=== PATIENT | female | born 1965 | race Native Hawaiian/Other Pacific Islander ===

== ENCOUNTER → 2022-12-30 | Outpatient (CLI) | payer BC ==
--- NOTE | 2022-12-30 18:24 | US ---
EXAMINATION TYPE: US thyroid st tissue head/neck DATE OF EXAM: 12/30/2022 COMPARISON: NONE CLINICAL INDICATION: Female, 57 years old with history of E04.8 OTHER SPECIFIED NONTOXIC GOITER; Pt s tates thinks left side of thyroid appears larger than right side. GLAND SIZE: Right Lobe: 4.8 x 2.0 x 1.5cm cm Overall Parenchyma: homogenous Left Lobe: 4.4 x 1.3 x 1.4 cm Overall Parenchyma: homogeneous Isthmus Thickness: 0.27 cm NODULES RIGHT: # of nodules measured on right: 0 LEFT: # of nodules measured on left: 0 ISTHMUS: # of nodules measured in the isthmus: 0 Multiple lymph nodes seen on left side of neck. Largest = 1.8 x 1.1 x 0.4cm. These demonstrate centra l fatty hilum and measure less than 1 cm short axis. IMPRESSION: 1. Unremarkable appearance of the thyroid gland without discrete nodule. 2. Few benign-appearing minimally prominent left neck lymph nodes.
== END | disposition home or self-care (01) ==
LOC: RADUSWWP 16:50
PROVIDERS: ATTEND Otolaryngology
DX: E04.8 Other specified nontoxic goiter (principal); R59.0 Localized enlarged lymph nodes
CPT/HCPCS: 76536

== ENCOUNTER → 2023-01-15 | Outpatient (CLI) | payer BC ==
--- NOTE | 2023-01-16 08:36 | CT ---
EXAMINATION TYPE: CT iac wo con DATE OF EXAM: 01/15/2023 COMPARISON: Right hearing loss HISTORY: hearing loss of right ear CT DLP: 142.7mGycm Automated exposure control for dose reduction was used. FINDINGS: The external auditory canals are patent bilaterally. Mastoid air cells show no evidence of abnormal opacification bilaterally. The middle ear ossicles are symmetric and unremarkable. There is no evidence of suspicious surrounding soft tissue density to suggest cholesteatoma. The scu bakari is preserved bilaterally. The cochlea is symmetric and unremarkable. There is thinning of the arcuate eminence along the upper margin of the superior symmetric circular canal bilaterally. There are changes of the ethmoidal and maxillary sinus chronic sinusitis. Vestibular aqueduct and internal carotid canal appear unremarkable. Temporomandibular joints are carole ntained bilaterally. IMPRESSION: 1. There is thinning of the arcuate eminence bilaterally along the upper margin of the superior semic ircular canal greater on the right which can be associated with superior semicircular canal dehiscenc e. There is a false positive rate with CT scan. Recommend MRI internal auditory canals for confirmati on. 2. Chronic sinusitis
== END | disposition home or self-care (01) ==
LOC: RADCTMAIN 17:17
PROVIDERS: ATTEND Otolaryngology
DX: H90.A31 Mixed conductive and sensorineural hearing loss, unilateral, right ear with restricted hearing on the contralateral side (principal); J32.0 Chronic maxillary sinusitis; J32.2 Chronic ethmoidal sinusitis
CPT/HCPCS: 70480

== ENCOUNTER → 2023-02-03 | Outpatient (CLI) | payer BC ==
--- NOTE | 2023-02-04 12:17 | MR ---
EXAMINATION TYPE: MR iac wo/w con DATE OF EXAM: 02/03/2023 6:14 PM CLINICAL INDICATION:Female, 57 years old with history of R93.89 ABNORMAL FINDINGS DIAG IMAGING; , Hea ring loss Right ear COMPARISON: CT 01/15/2023 TECHNIQUE: Multi planar, multi sequence imaging was performed through the brain. Specialized thin s equences were obtained through the internal auditory canals. Pre-and post gadolinium sequences were obtained. MR contrast: IV Contrast: 6 cc Gadavist FINDINGS: The cain-white junctions, ventricular system, and cisterns appear unremarkable. Minimal vague foci of high T2 signal intensity are seen within the periventricular white matter. Midline structures show no abnormality. Diffusion-weighted imaging shows no evidence of restricted diffusion. The susceptibi lity weighted images focus of blooming artifact in the right frontal lobe compatible with microhemorr nadiya. The bone marrow signal is within normal limits. Paranasal sinuses and mastoid air cells: Trace bilateral mastoid air cell high T2 signal compatible w ith effusions right greater left. Mild paranasal sinus disease with mucosal thickening of ethmoid air cells bilaterally and maxillary sinuses. Visualized orbits: Orbital contents are intact. After administration of gadolinium, no abnormal enhancement is seen. The internal auditory canal sequences demonstrate no significant irregularity. The 7th cranial nerve s, 8 cranial nerves, and cerebellar pontine angles appear unremarkable. After the administration soco olinium, no abnormal enhancement is seen within the internal auditory canals. Vascular loop: Right Type III: entering and extending >50% of the length of the IAC, left Type I: lyi ng only in the CPA, but not entering the internal auditory canal (IAC) IMPRESSION: 1. 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 Given CT findings correlate for vestibular and visual symptoms and/or auditory dysfunc tion, with symptoms including hearing loss, autophony, pulsatile tinnitus and hyperacusis. 2. Bilateral vascular loop is into the internal auditory canals Right Type III: entering and extendi ng >50% of the length of the IAC, left Type I: lying only in the CPA, but not entering the internal a uditory canal (IAC) 3. No evidence of intracranial mass nor acute/subacute CVA. 4. Minimal nonspecific white matter changes, likely secondary to small vessel ischemic disease. 5. Mild paranasal sinus disease with trace bilateral mastoid air cell effusions right greater left.
== END | disposition home or self-care (01) ==
LOC: RADMRIMAIN 17:19
PROVIDERS: ATTEND Otolaryngology
DX: G93.89 Other specified disorders of brain (principal); H91.91 Unspecified hearing loss, right ear; H74.8X3 Other specified disorders of middle ear and mastoid, bilateral; J34.89 Other specified disorders of nose and nasal sinuses; R93.89 Abnormal findings on diagnostic imaging of other specified body structures
CPT/HCPCS: 70553; A9585